=== PATIENT | male | born 1940 | race Caucasian/White ===

== ENCOUNTER 2023-12-20 16:21 | Outpatient (CLI) | payer MEDICARE, SELFPAY | END 2023-12-20 16:22 | disposition home or self-care (01) | LOC: AMB 01-10 03:28 | PROVIDERS: PCP Family Medicine; Visit Provider Family Medicine | DX: S01.91XA Laceration without foreign body of unspecified part of head, initial encounter (principal); S80.212A Abrasion, left knee, initial encounter; S80.211A Abrasion, right knee, initial encounter; S40.212A Abrasion of left shoulder, initial encounter; S00.91XA Abrasion of unspecified part of head, initial encounter; S30.810A Abrasion of lower back and pelvis, initial encounter; W19.XXXA Unspecified fall, initial encounter; Y92.9 Unspecified place or not applicable | CPT/HCPCS: A0425; A0427 ==

== ENCOUNTER 2024-05-21 10:21 | Outpatient (CLI) | payer MEDICARE, SELFPAY | END 2024-05-21 10:22 | disposition home or self-care (01) | PROVIDERS: PCP Family Medicine; Visit Provider Nurse Practitioner Family | DX: S00.01XA Abrasion of scalp, initial encounter (principal); V94.9XXA Unspecified water transport accident, initial encounter; R73.03 Prediabetes | CPT/HCPCS: G0463 ==

== ENCOUNTER 2024-05-29 13:40 | Outpatient (CLI) | payer MEDICARE, SELFPAY | END 2024-05-29 13:41 | disposition home or self-care (01) | LOC: WOUND 13:40 | PROVIDERS: PCP Family Medicine; Visit Provider Nurse Practitioner Family | DX: S00.01XA Abrasion of scalp, initial encounter (principal); R73.03 Prediabetes; V94.9XXA Unspecified water transport accident, initial encounter | CPT/HCPCS: G0463 ==

== ENCOUNTER 2025-04-27 11:15 | Outpatient (RCR) | payer MEDICARE, SELFPAY | END 2025-05-13 15:52 | disposition home or self-care (01) | PROVIDERS: PCP Family Medicine; Visit Provider Family Medicine | DX: M54.2 Cervicalgia (principal); Z51.89 Encounter for other specified aftercare | CPT/HCPCS: 97110; 97140; 97161 ==